=== PATIENT | female | born 2000 | race Caucasian/White ===

== ENCOUNTER 2019-08-29 05:48 | Day surgery (SDC) | payer BC, SELFPAY ==
[2019-07-17 09:27] VITALS: BMI 25.0
[2019-08-27 18:49] LABS: Hemoglobin 12.6 g/dL (12.0-15.0); Mean Corp Hgb Conc 32.3 g/dL (32-36); Mean Corpuscular Hgb 28.4 pg (27.0-32.0); Mean Corpuscular Volume 87.8 fL (81-99); Mean Platelet Vol. 12.7 fl (6.2-12.0); Platelet Count 191 K/mm3 (150-450); RBC Distribution Width CV 13.2 % (11.6-14.6); RBC Distribution Width SD 42.5 fl (35.1-43.9); Red Blood Count 4.44 M/mm3 (4.2-5.4); White Blood Count 5.1 K/mm3 (4.4-11.0)
[2019-08-27 18:54] LABS: Prothrombin Time (Protime)PT. 13.4 SECONDS (11.7-14.9)
[2019-08-27 18:55] LABS: Partial Thromboplast Time 28.6 Seconds (24.1-36.2)
--- NOTE | 2019-08-28 21:33 | HP.PCM_ITS ---
- Problem List (1) Chronic pelvic pain in female Status: Chronic (2) Dysmenorrhea Status: Acute History and Physical Date of Admission: 08/29/19 Date: 08/14/2019 Name: RENATO MATTHEWS Age: 18 Date of : [birth year] HISTORY OF PRESENT ILLNESS: On 08/14/2019, Renato Matthews, a 18 year old female 0 0 0 0 0, presented for: -- Pre-Op -- Oivia is here for pre-op appt. Consents are signed and chart updated. She is ill today with low grade fever and aches. Advised to see PCP or Urgent Care for flu swab as they are planning to leave on Monday for [place]. Planned diagnostic lap with possible treatment for endometriosis. LMT as above. Renato is here with her mom today for pre-op visit for diagnostic laparoscopy, possible surgical treatment of endometriosis as indicated. Renato has hx dysmenorrhea and chronic pelvic pain refractory to medical management with various OCPs. shm ALLERGIES: NKDA MEDICATIONS HISTORY: Current medications prescribed by our practice are: 1. desogestrel 0.15 mg-ethinyl estradiol 0.03 mg tablet, 1 tab PO daily x 3 weeks, then start new pack REVIEW OF SYSTEMS: GENERAL - fever and aches SKIN - Denies skin changes EYES - wears eye glasses EARS - Denies difficulty hearing NOSE - Denies nasal congestion or bleeding MOUTH - Denies sore throat or difficulty swallowing NECK - Denies pain or swelling RESPIRATORY - Denies shortness of breath or wheezing CARDIOVASCULAR - Denies palpitations or chest pain GASTROINTESTINAL - Denies nausea, vomiting, diarrhea, constipation GENITOURINARY - Denies dysuria, frequency of urination, incontinence of urine MUSCULOSKELETAL - Denies joint or muscle pain NEUROLOGICAL - Denies localized numbness or weakness PSYCHIATRIC - Denies depression or anxiety ENDOCRINE - Denies heat or cold intolerance, weight loss or gain HEMATO-IMMUNOLOGIC - Denies excesive bleeding with cuts PAST HISTORY: Breast/Ovarian/Colon Cancers - Denies Infections - none Illnesses - none Accidents - None History of Abnormal PAPS - na Hospitalizations - RSV as a baby SURGICAL HISTORY: 1. breast surgery 07/2017 2. tubes in her ears MENSTRUAL HISTORY: LMP Known?- Approximate-Month KnownAmount/Duration - 6-7 days, Regularity - regular, Frequency - monthly days, LMP - 07/22/19, Age Onset Menarche - 13 PAST PREGNANCIES: Total Pregnancies - 0; Full Term Pregnancies - 0; Premature - 0; Abortions, In duced - 0; Abortions, Spontaneous - 0; Ectopics - 0; Multiple Births - 0; Living Children - 0 FAMILY HISTORY: PaternalGrandparent - Heart disorder; SOCIAL HISTORY: Alcohol Use - denies drinking Smoking - denies smoking Diet - no special diet Lifestyle - low stress lifestyle Exercise - minimal Seat Belt Use - always Employer - hotel, 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 Illicit Drug Use - denies use of street drugs Sexual Activity - sexually inactive Residence - lives with parents Hours Worked - [employer] PHYSICAL EXAMINATION BP- 122/80 Sitting, Right arm, regular cuff Temp- 99.5 Taken Orally Weight- 147.00 lbs Height- 62.50 inch BMI:26.51 CONSTITUTIONAL - NAD, well nourished, and well developed SKIN - No rash, lesions, or ulcers HEENT - normocephalic, atraumatic, sclerae anicteric LUNGS - CTA x2 without wheezes, crackles or rales CARDIAC - Regular rate and rhythm without rubs, murmurs, or gallops EXTREMITIES - No edema or calf tenderness NEUROLOGICAL - Cranial nerves II-XII grossly intact PSYCHIATRIC - A and O to time, place, person, mood and affect ASSESSMENT: 1. Primary Dysmenorrhea PLAN BY DIAGNOSIS: 1. Encounter For Surveillance Of Contraceptive Pills, Excessive And Frequent Menstruation With Irregular Cycle, Other Specified Abnormal Uterine And Vaginal Bleeding and Primary Dysmenorrhea Persistent painfulness despite ovarian suppression Pelvic US unremarkable with thin endometrium Suspect endometriosis Plan for diagnostic laparoscopy, IRMA - reviewed procedure, how performed, surgical r/b/i/a NPO @ [place] prior to procedure Body wash instructions reviewed
--- NOTE | 2019-08-29 | MISC_PTH ---
PATIENT: RENATO ANNE LOC: [facility] [place] U#:[id number] AGE/SX: 18/F ROOM: RE08/29/[address]: Dr. Pearl Joel MD : 2000 BED: DIS: 08/29/2019 SPEC #: [id number] RECD: 08/29/19 14:03 STATUS: EDGARDO LESLIE #: [id number] AMANDEEP: 08/29/19 00:[address]: Pearl Roberts DEPT: SURGICAL PATHOLOGY RECD BY: Randall Lipscomb ENTERED: 08/29/19 14:06 SP TYPE: MISC OTHR DR: Dr. Isidoro Pandya MD Tissues: A - Peritoneum, NOS B - Left ovary C - Peritoneum, NOS D - Peritoneum, NOS Procedures: Surgery Specimen Level IV HEADER OPERATION: Diagnostic laparoscopy, treatment of endometriosis PRE-OP DIAGNOSIS: Primary dysmenorrhea TISSUE SUBMITTED: A - Posterior pelvic peritoneum, B - Left ovarian fossa, C - Right uterosacral peritoneum, D - Right anterior cul-de-sac MICROSCOPIC DIAGNOSIS A. Posterior pelvic peritoneum, biopsy: Consistent with focal endometriosis. B. Left ovarian fossa, biopsy: Focal minimal histiocytic reaction. C. Right uterosacral peritoneum, biopsy: Consistent with focal endometriosis. D. Right anterior cul-de-sac, biopsy: Focal minimal chronic inflammation. AM:vito 08/30/19 COMMENT Clinical correlation is suggested. MICROSCOPIC DESCRIPTION Slides are reviewed. GROSS DESCRIPTION A - Received in fixative is one container labeled with the patient's name and designated posterior pelvic peritoneum. The specimen consists of two pieces of maynard-pink soft tissue measuring in aggregate 1.2 x 1 x 0.2 cm. The specimen is totally submitted in one cassette. B - Received in fixative is one container labeled with the patient's name and designated left ovarian fossa. The specimen consists of one piece of maynard-pink soft tissue measuring 0.8 x 0.5 x 0.3 cm. The specimen is totally submitted in one cassette. C - Received in fixative is one container labeled with the patient's name and designated right uterosacral peritoneum. The specimen consists of an irregular piece of maynard-pink soft tissue measuring 1.5 x 0.7 x 0.3 cm. The specimen is totally submitted in one cassette. D - Received in fixative is one container labeled with the patient's name and designated right anterior cul-de-sac. The specimen consists of a piece of maynard-pink soft tissue measuring 0.7 x 0.3 x 0.2 cm. The specimen is totally submitted in one cassette. / DAGO:vito 08/29/19 TC:3 CPT: 48160 x4
[2019-08-29 06:21] LABS: Internal QC Validated? YES +Cl - CLEAR BKGD; Pregnancy, Urine Negative Negative
[2019-08-29 06:22] VITALS: BP 120/74; PULSE 89; RESP 16; TEMP 36.3; O2SAT 100; BMI 25.4
[2019-08-29] MEDS: Lactated Ringers 1,000 ML 125 ML IV (06:34)
[2019-08-29] MEDS: Lubricating Jelly 60 GM Tube 30 GM TOPICAL (07:35)
[2019-08-29] MEDS: Bupivacaine Mpf 0.5% 30 ML VIAL (09:56)
--- NOTE | 2019-08-29 09:56 | PCM.OPRPT ---
Problem List (1) Chronic pelvic pain in female Status: Chronic (2) Dysmenorrhea Status: Acute (3) Endometriosis Status: Acute Report of Operation Date of Procedure: 08/29/19 Pre-Operative Diagnosis: Chronic pelvic pain, dysmenorrhea Post-Operative Diagnosis: Chronic pelvic pain, dysmenorrhea, endometriosis Surgery/Procedure Performed:: Diagnostic laparoscopy, surgical treatment of endometriosis, peritoneal biopsy, adhesiolysis Description of Surgical Findings:: Anterior and posterior culdesac endometriosis with powder burn lesions present as well as white lesions Normal tubes and ovaries bilaterally Uterus normal career development engineer: Lobo Panda Type of Anesthesia:: General, Local Anesthesiologist: Alden Dsouza Specimen's removed: 1. anterior culdesac peritoneum. 2. left ovarian fossa peritoneum. 3. left uterosacral/posterior culdesac peritoneum. 4. Right uterosacral/posterior culdesac peritoneum Estimated Blood Loss (mL): 150 Fluids Replaced: 1400 ml Description of Procedure: Indications: 18-year-old nulligravida with a history of chronic pelvic pain and dysmenorrhea refractory to oral contraceptives presents for scheduled diagnostic laparoscopy and surgical treatment of endometriosis as indicated. Procedural risks, benefits, indications, alternatives were reviewed prior to procedure and patient desired to proceed. Informed consent was obtained prior to the procedure. Procedure: The patient was brought to the operating room and placed in the dorsal supine position and induced under general anesthesia and intubated. She was then repositioned to dorsolithotomy and examination under anesthesia was performed. Her arms were tucked at the sides. The abdomen and perineum were prepped and draped in sterile fashion. The patient was placed into high lithotomy and Sutton catheter was placed into the bladder and speculum examination performed. Due to small cervix is made of the ZUMI uterine manipulator was unsuccessful. A sponge stick was placed into the vagina for further uterine manipulation. The patient was placed into low lithotomy and attention turned to the abdomen. An inferior umbilical incision was made using the scalpel following infiltration with half percent bupivacaine. Veress needle was placed with successful hanging drop test and no aspirate. The Veress needle was removed. A 5 mm trocar was placed under laparoscopic guidance confirming entry into the abdominal cavity. Abdominal entry pressures were 3 mmHg. The abdomen was insufflated to 15 mmHg. Bupivacaine was placed suprapubically, a suprapubic incision was made and an additional 5 mm port was placed this site. TAP block was placed and right and left lower quadrant ports were placed under transillumination. Patient was placed into Trendelenburg. The abdomen and pelvis were inspected demonstrating peritoneal endometriosis along the bilateral uterosacral ligaments, the left ovarian fossa, the anterior cul-de-sac. There were adhesions along the round ligament and anterior broad ligament. I proceeded with biopsy of the left posterior cul-de-sac peritoneum and uterosacral peritoneum. This was incised and peritoneal endometriotic lesions were excised using wide margins. The same was done along the left ovarian fossa to remove lesions, and again on the right uterosacral peritoneum. Arteriolar bleeding was encountered the junction of the uterosacral ligament and posterior cervix and controlled using monopolar electrocoagulation. Attention was turned to the anterior cul-de-sac and a small area of anterior cul-de-sac peritoneum with likely endometriosis was excised. Bleeding at this site was controlled using electrocoagulation. The adhesions of the left anterior broad ligament and round ligament were lysed bluntly. The pelvis was irrigated. Bleeding along the right uterosacral edge was controlled using electrocoagulation with good hemostasis. Interceed was placed at all the excisional biopsy sites. The procedure was complete. The abdomen was desufflated and trochars were removed. The skin was closed using 4-0 Monocryl and OpSite dressing placed over the incisions. Additional bupivacaine was administered locally. The sponge stick was removed from the vagina and Sutton catheter removed. The patient was placed into dorsal supine position, arms untucked, awakened, extubated and will be transferred to recovery room. The patient tolerated the procedure well. Sponge, instrument and needle counts were correct x2. - Complications None - Admit VTE Documentation VTE Present on Admission: No VTE Mechan Device Prophylaxis: SCD's VTE Pharm Prophylaxis ordered?: No
[2019-08-29 10:14] VITALS: BP 120/74; BP 93/77; PULSE 84; RESP 16; TEMP 36.4; O2SAT 100
[2019-08-29 10:30] VITALS: BP 111/73; BP 120/74; PULSE 78; RESP 16; O2SAT 100
[2019-08-29 10:45] VITALS: BP 104/60; BP 120/74; PULSE 83; RESP 16; O2SAT 100
[2019-08-29 11:00] VITALS: BP 109/68; BP 120/74; PULSE 89; RESP 16; TEMP 36.8; O2SAT 100
--- NOTE | 2019-08-29 12:39 | DCINST_ITS ---
- Discharge Diagnoses Current Active Problems: Current Active and Chronic Problems (Last Updated 09/04/17 @ 14:46 by Jun Harris MD) Endometriosis (Acute) Reason(s) for Visit for Discharge Instructions: Laparoscopy You will use the following diet at home:: No restrictions Your food should be the consistency of: Regular Discharge Activity: Return to Normal Activity, May not drive while taking narcotic pain medications., May Shower, - - No tub bath for 1 week May resume sexual activity in: 4-6 weeks Lifting Restrictions: 10-20 lb Call your doctor if your incision/area has: Continuous Slow Oozing, Sudden Increased Bleeding, Increased Pain/ Swelling, Increased Redness Call your doctor if you observe: Fever of 101 or Higher, Inability to urinate, Inability to have a bowel movement, Using more than one pad per hour, Shortness of breath, Chest pain, Calf discomfort, Uncontrolled pain Suture Line Care: Avoid Pulling/Pushing Remove Dressing in (days):: 1 Cleanse incision/area with: Soap & Water Additional Dressing/Incision Instructions:: Remove steristrips on Monday Instructions: What Is Endometriosis? Allergies/Adverse Reactions: Allergies No Known Allergies Allergy (Verified 08/29/19 06:18) Medications to take at Discharge Cephalexin [Keflex] 500 mg PO BID 08/16/19 Desogestrel-Ethinyl Estradiol [Apri 28 Day Tablet] 1 ea PO DAILY 08/16/19 Docusate Sodium [Colace] 100 mg PO BID PRN PRN #30 cap 08/29/19 Ibuprofen 600 mg PO TID PRN #30 tab 08/29/19 Oxycodone [Oxyir] 5 mg PO Q6H PRN PRN 7 Days #20 tab 08/29/19 The following prescriptions were given: Docusate Sodium [Colace] 100 mg PO BID PRN PRN #30 cap PRN Reason: Constipation Transmission Status: Pending to [facility] Ibuprofen 600 mg PO TID PRN #30 tab PRN Reason: Pain Or Fever Transmission Status: Pending to [facility] Oxycodone [Oxyir] 5 mg PO Q6H PRN PRN 7 Days #20 tab PRN Reason: severe pain Prescription Printed Orders to be completed after discharge: Type & Screen Time Frame: 08/16/19, Facility: [facility], Location: Laboratory CBC-Complete Blood Cnt No Diff Time Frame: 08/16/19, Facility: [facility], Location: Laboratory Partial Thromboplast Time Time Frame: 08/16/19, Facility: [facility], Location: Laboratory Prothrombin Time w/INR Time Frame: 08/16/19, Facility: [facility], Location: Laboratory Primary Care Physician: Isidoro Pandya MD [Primary Care Provider] - Test Results: Test results from this visit will be discussed in further detail at your follow- up appointment, if applicable. Please Follow Up With: Pearl Duenas MD When: 2-4 weeks
[2019-08-29] MEDS: HYDROcodone Bitartrate/Apap 5/325 Tablet PO (13:21)
[2019-08-29 13:33] VITALS: BP 100/60; BP 120/74; PULSE 76; RESP 18; TEMP 36.6; O2SAT 100
== END 2019-08-29 13:51 | disposition home or self-care (01) ==
LOC: SDC 05:49 → AC 05:50
PROVIDERS: Family Provider Family Medicine; PCP Family Medicine; Referring Provider Obstetrics & Gynecology; Visit Provider Obstetrics & Gynecology
PROC: (CPT 49320; principal; 2019-08-29 07:00)
DX: N80.9 Endometriosis, unspecified (principal); N94.4 Primary dysmenorrhea
CPT/HCPCS: 00840; 58662; 36415; 81025; 85027; 85610; 85730; 86850; 86900; 86901; 88305; J7120; J2405